=== PATIENT | male | born 1990 | race Two or more races ===

== ENCOUNTER 2020-12-15 15:26 | Emergency (ER) | payer MEDICAID, OTHER ==
[~2020-12-15] VITALS: Ht 157.5 cm; Wt 40.8 kg
[2020-12-15] MEDS ORDERED: GLUCAGON HYDROCHLORIDE (RDNA) 1 MG VIAL IM ONE (15:45)
[2020-12-15 17:24] VITALS: BP 129/89
== END 2020-12-15 17:36 | disposition home or self-care (01) ==
LOC: ER 15:26
DX: S00.552A Superficial foreign body of oral cavity, initial encounter (principal); G80.9 Cerebral palsy, unspecified; Z88.8 Allergy status to other drugs, medicaments and biological substances; X58.XXXA Exposure to other specified factors, initial encounter; Y93.89 Activity, other specified; Y92.89 Other specified places as the place of occurrence of the external cause; Y99.8 Other external cause status
CPT/HCPCS: 70360; 96372; 99283; J1610